=== PATIENT | male | born 1990 | race Caucasian/White ===

== ENCOUNTER 2016-04-26 20:00 | Emergency (ER) | payer MEDICAID ==
[2016-04-26 20:46] LABS: BASOPHILS 0.7 % (0.0-2.0); EOSINOPHILS 1.2 % (0-7); HEMATOCRIT 47.5 % (42.0-54.0); HEMOGLOBIN 16.1 g/dL (13.5-17.5); IMMATURE GRANULOCYTES 0.3 % (0-5); LYMPHOCYTES 23.7 % (15-50); MCH 30.3 pg (26.0-34.0); MCHC 33.9 g/dL (31.0-37.0); MCV 89.5 fL (80.0-100.0); MEAN PLATELET VOLUME 10.1 fL (7.4-10.4); MONOCYTES 8.4 % (2-11); NEUTROPHILS 65.7 % (40-80); PLATELET COUNT 290 10x3/uL (130-400); RBC 5.31 10x6/uL (4.20-6.10); RDW 12.7 % (11.5-14.5); WBC 7.5 10x3/uL (4.8-10.8)
[2016-04-26 20:58] LABS: ALBUMIN 4.4 g/dL (3.4-5.0); ALKALINE PHOSPHATASE 55 U/L (46-116); ALT (SGPT) 36 U/L (10-68); BILIRUBIN - TOTAL 0.49 mg/dL (0.2-1.3); CALC OSMOLALITY 276 mosm/kg (275-300); CALCIUM 9.6 mg/dL (8.5-10.1); CHLORIDE - SERUM 104 mmol/L (98-107); CREATININE - SERUM 1.2 mg/dL (0.6-1.3); GLUCOSE 103 mg/dL (74-106); POTASSIUM - SERUM 4.2 mmol/L (3.5-5.1); PROTEIN - SERUM 7.3 g/dL (6.4-8.2); SODIUM 140 mmol/L (136-145); UREA NITROGEN 7 mg/dL (7-18); eGFR NON AFRICAN AMERICAN 78 mL/min (90-120)
[2016-04-26 21:10] LABS: CKMB 0.8 U/L (0.0-3.6); CREATINE KINASE 196 UL (21-232); TROPONIN-I < 0.017 ng/mL (0.000-0.060)
== END 2016-04-26 21:25 | disposition home or self-care (01) ==
LOC: D.ER 20:00
PROVIDERS: Family Medicine
DX: R07.89 Other chest pain (principal); I10 Essential (primary) hypertension; G40.909 Epilepsy, unspecified, not intractable, without status epilepticus

== ENCOUNTER → 2016-05-13 09:26 | Outpatient (CLI) | payer MEDICAID | END | disposition home or self-care (01) | LOC: D.LAB 09:00 → D.CT 09:30 | DX: I10 Essential (primary) hypertension (principal) ==

== ENCOUNTER → 2016-06-13 12:21 | Outpatient (CLI) | payer MEDICAID ==
--- NOTE | 2016-06-16 08:26 | EEG ---
PATIENT:LINN RICO DATE OF SERVICE: 06/13/16 MEDICAL RECORD: [id number] DATE OF : 88 LOCATION: [facility] ADMISSION DATE: 06/13/16 REFERRING PHYSICIAN: INTERPRETING PHYSICIAN: SHARDA MORAN MD DATE OF SERVICE: 06/13/2016 Referred by myself as an outpatient. ELECTROENCEPHALOGRAM NUMBER: [id number] DATE OF EXAMINATION: 06/13/2016 at 1:30 p.m. TECHNICAL DATA: This electroencephalographic recording consists of approximately 20 minutes of data collection utilizing the international 10/20 system of electrode placement and both referential and non-referential montages. Sixteen channels of electrocerebral recording are accompanied by a 17th channel dedicated to the electrocardiographic rhythm and 2 channels of electromyographic recording. Recording is performed entirely in the waking state utilizing activation by hyperventilation and photic stimulation. ELECTROENCEPHALOGRAPHIC DATA: The awake state comprises the entirety of the recorded electrocerebral activity. Electromyographic artifact is prominent and rapid eye movements are seen. The posterior dominant background consists of a well-developed, symmetric, rhythmic, waxing and waning alpha activity of 9-10 Hz, which is suppressed by eye opening. No abnormal or focal slowing is identified. No epileptiform discharges are seen. Hyperventilation and photic stimulation induced no abnormal change in the recorded electrocerebral activity. INTERPRETATION: Normal (awake). This is a normal waking electroencephalographic recording. 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
== END | disposition home or self-care (01) ==
LOC: D.MRI 09:00 → D.CN 12:21
DX: G43.009 Migraine without aura, not intractable, without status migrainosus (principal); R55 Syncope and collapse